=== PATIENT | male | born 1970 | race Caucasian/White ===

== ENCOUNTER 2020-10-25 12:46 | Inpatient (IN) | payer SELFPAY ==
[2020-10-25 13:28] LABS: Hemoglobin 15.5 g/dL (14.0-18.0); Mean Corpuscular HGB CONC 32.6 g/dL (32.0-36.0); Mean Corpuscular Hemoglobin 27.4 pg (27.0-31.0); Mean Corpuscular Volume 84.3 fL (78.0-98.0); Mean Platelet Volume 8.6 fL (7.4-10.4); Platelet Count 306 thou/uL (130-400); RBC Distribution Width 14.3 % (11.5-14.5); Red Blood Cell (RBC) Count 5.65 mill/uL (4.70-6.10); White Blood Cell (WBC) Count 13.3 thou/uL (4.8-10.8)
[2020-10-25 13:51] LABS: Band 3 % (5-11); Eosinophils 1 % (0-10); Lymphocytes 31 % (21-51); MDiff Complete? YES; Monocytes 12 % (0-10); Neutrophil 47 % (42-75); Platelet Morphology Comment Appears Adequate; RBC Morphology Normal; Reactive Lymphocytes 3 % (0-10)
--- NOTE | 2020-10-25 15:08 | RAD ---
AP CHEST: 10/25/20 INDICATIONS: Chest pain. Shortness of breath. No comparison. The lungs appear clear. No infiltrate. No evidence of vascular congestion or edema. Mild cardiomegaly . IMPRESSION: Heart is mildly enlarged. The lung brewer appear clear. POS: AGW
[2020-10-25] MEDS ORDERED: Enoxaparin Sodium 100 MG/ML SYRINGE ONE (15:36)
[2020-10-25 15:49] LABS: ALT (SGPT) 82 U/L (8-55); AST (SGOT) 67 U/L (5-34); Albumin 3.6 g/dL (3.5-5.0); Alkaline Phosphatase 77 U/L (40-110); Anion Gap 14 mmol/L (10-20); BUN (Urea Nitrogen) 24 mg/dL (8.9-20.6); Bilirubin, Total 0.4 mg/dL (0.2-1.2); Calc. Creatinine Clearance 0 mL/min (70-130); Calcium 8.9 mg/dL (7.8-10.44); Carbon Dioxide 25 mmol/L (22-29); Chloride 103 mmol/L (98-107); Globulin 3.5 g/dL (2.4-3.5); Lipase 72 U/L (8-78); Potassium 4.4 mmol/L (3.5-5.1); Protein, Total 7.1 g/dL (6.0-8.3); Sodium 138 mmol/L (136-145)
[2020-10-25 15:54] LABS: Glucose 53 mg/dL (70-105)
--- NOTE | 2020-10-25 16:54 | PDOC.HHP ---
Hospitalist ANCELMO "They say am having a mild heart attack" History of Present Illness: This patient is a 49-year-old whose medical history includes hypertension and dyslipidemia who was previously on antihypertensives but has not taken any for so long due to financial reasons. He presented to the hospital because he started having shortness of breath in the last 48 hours. He reports that he is only now able to walk about 10 feet before he has to stop due to shortness of breath. This got worse prompting him to seek medical attention today. Reportedly before coming into the hospital he was very hypertensive with a blood pressure around 180 systolic. He took a friend's blood pressure medication with slight improvement. With his shortness of breath he thinks he may have gained about 15 to 20 pounds. He usually weighs around 215 but today his weight was about 235. He is unable to lay flat at night to sleep due to him feeling shortness of breath. He has woken up in the middle of the night at times because he was short of breath but he also think that could be from anxiety. He has not had any chest pain that he was aware of. He had vomiting when he arrived in the emergency room. He has not had any palpitations. He denied any headaches. No diarrhea has been reported. Other pertinent medical history includes a father who from complications of coronary artery disease in his 60s and the mother who from complications of stroke and diabetes. His brother from complications of lupus. Allergies/Adverse Reactions: Allergy/AdvReac Type Severity Reaction Status Date / Time No Known Allergies Allergy Unverified 10/25/20 16:55 Past History: PMHx: Hypertension and hyperlipidemia. PSHx: He denied any previous surgical history. FHx: Significant for father who from complications of coronary artery disease in his 60s. His mother also possibly from complications of a stroke and his brother from complications of lupus. Social: He denied any alcohol or drug abuse. He denied any tobacco smoking. He works in construction. Hospitalist ANCELMO [place]OK[place] Constitutional: reports: sweats, weakness, malaise Respiratory: reports: cough, dry, shortness of breath, hemoptysis, SOB with excertion Cardiovascular: denies: chest pain, palpitations, orthopnea, paroxysmal noc. dyspnea, edema, light headedness, other Gastrointestinal: reports: nausea, vomiting. denies: abdominal pain, diarrhea, constipation, melena, hematochezia, other Genitourinary: denies: dysuria, frequency, incontinence, hematuria, retention, other Musculoskeletal: denies: neck pain, shoulder pain, arm pain, back pain, hand pain, leg pain, foot pain, other Skin: denies: rash, lesions, dylan, bruising, other Neurological: reports: weakness All other systems reviewed; all pertinent +/- noted in HPI/Subj Hospitalist Exam General Appearance: NAD, awake alert, ill appearing Eye: PERRL, anicteric sclera ENT: normocephalic atraumatic, no oropharyngeal lesions, dry oral mucosa Neck: supple, symmetric, JVD Heart: RRR, no murmur, no gallops, no rubs, normal peripheral pulses Respiratory: CTAB, no wheezes, no rales, no ronchi, normal chest expansion Gastrointestinal: soft, non-tender, non-distended, normal bowel sounds Extremities: 1+ LE edema Neurological: cranial nerve grossly intact, normal sensation to touch, no weakness, no focal deficits Musculoskeletal: normal tone, normal strength, no muscle wasting Psychiatric: normal affect, normal behavior, A&O x 3 Hospitalist Results Result Diagrams: 10/25/20 13:16 10/25/20 15:07 Lab results: Laboratory Last Values WBC 13.3 thou/uL (4.8-10.8) H 10/25/20 13:16 RBC 5.65 mill/uL (4.70-6.10) 10/25/20 13:16 Hgb 15.5 g/dL (14.0-18.0) 10/25/20 13:16 Hct 47.7 % (42.0-52.0) 10/25/20 13:16 MCV 84.3 fL (78.0-98.0) 10/25/20 13:16 MCH 27.4 pg (27.0-31.0) 10/25/20 13:16 MCHC 32.6 g/dL (32.0-36.0) 10/25/20 13:16 RDW 14.3 % (11.5-14.5) 10/25/20 13:16 Plt Count 306 thou/uL (130-400) 10/25/20 13:16 MPV 8.6 fL (7.4-10.4) 10/25/20 13:16 Neutrophils % (Manual) 47 % (42-75) 10/25/20 13:16 Band Neuts % (Manual) 3 % (5-11) L 10/25/20 13:16 Lymphocytes % (Manual) 31 % (21-51) 10/25/20 13:16 Reactive Lymphs % 3 % (0-10) 10/25/20 13:16 Monocytes % (Manual) 12 % (0-10) H 10/25/20 13:16 Eosinophils % (Manual) 1 % (0-10) 10/25/20 13:16 Basophils % (Manual) 3 % (0-2) H 10/25/20 13:16 Lymphocytes # Not Reportable 10/25/20 13:16 Plt Morphology Comment Appears Adequate 10/25/20 13:16 RBC Morph Comment Normal 10/25/20 13:16 Sodium 138 mmol/L (136-145) 10/25/20 15:07 Potassium 4.4 mmol/L (3.5-5.1) 10/25/20 15:07 Chloride 103 mmol/L (98-107) 10/25/20 15:07 Carbon Dioxide 25 mmol/L (22-29) 10/25/20 15:07 Anion Gap 14 mmol/L (10-20) 10/25/20 15:07 BUN 24 mg/dL (8.9-20.6) H 10/25/20 15:07 Creatinine 1.50 mg/dL (0.7-1.3) H 10/25/20 15:07 Estimated GFR (MDRD) 50 10/25/20 15:07 Glucose 53 mg/dL (70-105) L* 10/25/20 15:07 Calcium 8.9 mg/dL (7.8-10.44) 10/25/20 15:07 Total Bilirubin 0.4 mg/dL (0.2-1.2) 10/25/20 15:07 AST 67 U/L (5-34) H 10/25/20 15:07 ALT 82 U/L (8-55) H 10/25/20 15:07 Alkaline Phosphatase 77 U/L (40-110) 10/25/20 15:07 CK-MB (CK-2) 5.0 ng/mL (0-6.6) 10/25/20 13:16 Troponin I 0.110 ng/mL (< 0.028) H 10/25/20 13:16 B-Natriuretic Peptide 601.2 pg/mL (0-100) H 10/25/20 13:16 Serum Total Protein 7.1 g/dL (6.0-8.3) 10/25/20 15:07 Albumin 3.6 g/dL (3.5-5.0) 10/25/20 15:07 Globulin 3.5 g/dL (2.4-3.5) 10/25/20 15:07 Albumin/Globulin Ratio 1.0 g/dL (1.2-2.2) L 10/25/20 15:07 Lipase 72 U/L (8-78) 10/25/20 15:07 Hospitalist H&P A/P (1) Hypertensive heart disease with congestive heart failure Code(s): I11.0 - HYPERTENSIVE HEART DISEASE WITH HEART FAILURE Status: Acute Qualifiers: Heart failure type: diastolic Heart failure chronicity: acute Qualified Code(s): I11.0 - Hypertensive heart disease with heart failure; I50.31 - Acute diastolic (congestive) heart failure (2) Congestive heart failure due to cardiomyopathy Code(s): I50.9 - HEART FAILURE, UNSPECIFIED; I42.9 - CARDIOMYOPATHY, UNSPECIFIED Status: Acute (3) Acute kidney injury Code(s): N17.9 - ACUTE KIDNEY FAILURE, UNSPECIFIED Status: Acute (4) Dyslipidemia Code(s): E78.5 - HYPERLIPIDEMIA, UNSPECIFIED Status: Acute (5) Elevated troponin Code(s): R77.8 - OTHER SPECIFIED ABNORMALITIES OF PLASMA PROTEINS Status: Acute (6) Anxiety Code(s): F41.9 - ANXIETY DISORDER, UNSPECIFIED Status: Acute Plan: #1. Hypertensive heart disease. His blood pressure was significantly elevated prior to admission. We will work on optimizing it. 2. Acute congestive heart failure likely diastolic dysfunction. Patient likely has dyspnea secondary to congestive heart failure. Suspected acute on chronic. He reported that he took Lasix in the past but he has not been on it for over a year. On exam he does have pretty significant jugular venous distention. We will diurese him. We will get an echocardiogram to further delineate the heart fail ure type. Consider cardiology consultation in the near future. 3. Acute kidney injury. Patient's creatinine was 1.5. No prior here to document baseline. We will avoid nephrotoxins. I would like to not give him any lisinopril at this time until we figure out what his baseline is. 4. Hyperlipidemia We will check lipid profile in the morning. 5. Elevated troponin. Patient's troponin was slightly elevated but he is not having any chest pain. I suspect that this might be type II NSTEMI secondary to uncontrolled blood pressure. The patient is a full code at his request.
[2020-10-25] MEDS ORDERED: Furosemide 100 MG/10 ML VIAL SLOW IVP SCH (17:15)
[2020-10-25] MEDS ORDERED: Furosemide 40 MG/4 ML VIAL ONE (17:29)
[2020-10-25 18:10] LABS: Troponin I 0.101 ng/mL (< 0.028)
[2020-10-25] MEDS ORDERED: hydrOXYzine 25 MG TAB ONE (21:46)
[2020-10-26 04:34] LABS: #Basophils 0.1 thou/uL (0.0-0.2); #Eosinphils 0.2 thou/uL (0.0-0.7); #Lymphocytes 3.4 thou/uL (1.20-3.40); #Monocytes 0.8 thou/uL (0.11-0.59); #Neutrophils 8.7 thou/uL (1.40-6.50); %Eosinophils 1.3 % (0.0-10.0); %Monocytes 5.8 % (0.0-10.0); %Neutrophils 65.9 % (42.0-75.0); Hemoglobin 13.5 g/dL (14.0-18.0); Mean Corpuscular HGB CONC 31.2 g/dL (32.0-36.0); Mean Corpuscular Hemoglobin 25.4 pg (27.0-31.0); Mean Corpuscular Volume 81.5 fL (78.0-98.0); Mean Platelet Volume 8.4 fL (7.4-10.4); Platelet Count 304 thou/uL (130-400); RBC Distribution Width 14.1 % (11.5-14.5); Red Blood Cell (RBC) Count 5.33 mill/uL (4.70-6.10); White Blood Cell (WBC) Count 13.2 thou/uL (4.8-10.8)
[2020-10-26 04:41] LABS: Hemoglobin A1c 5.2 % (4.0-6.0)
[2020-10-26 04:53] LABS: ALT (SGPT) 84 U/L (8-55); AST (SGOT) 71 U/L (5-34); Albumin 3.1 g/dL (3.5-5.0); Alkaline Phosphatase 63 U/L (40-110); Anion Gap 13 mmol/L (10-20); BUN (Urea Nitrogen) 20 mg/dL (8.9-20.6); Bilirubin, Total 0.4 mg/dL (0.2-1.2); Calc. Creatinine Clearance 99 mL/min (70-130); Calcium 8.5 mg/dL (7.8-10.44); Carbon Dioxide 25 mmol/L (22-29); Cardiac Risk 5.4 (Less than 4.5); Chloride 100 mmol/L (98-107); Cholesterol 108 mg/dl (< 200 Desired); Glucose 149 mg/dL (70-105); HDL Cholesterol 20 mg/dL (>60 Neg Risk); LDL Cholesterol, Calculated 67 mg/dL; Magnesium 1.7 mg/dL (1.6-2.6); Potassium 3.6 mmol/L (3.5-5.1); Protein, Total 6.1 g/dL (6.0-8.3); Sodium 134 mmol/L (136-145); Triglycerides 103 mg/dL (Less than 150)
[2020-10-26] MEDS ORDERED: Furosemide 40 MG/4 ML VIAL ONE (06:29)
[2020-10-26] MEDS: Furosemide 40 MG/4 ML VIAL SLOW IVP SCH ×2 (06:32→14:20)
[2020-10-26 08:05] LABS: SARS-CoV-2 PCR by NAA DETECTED (NotDetected)
[2020-10-26] MEDS ORDERED: Enoxaparin Sodium 40 MG/0.4 ML SYRINGE ONE (09:04)
[2020-10-26] MEDS: Enoxaparin Sodium 40 MG/0.4 ML SYRINGE SC SCH (09:14)
[2020-10-26] MEDS ORDERED: cefTRIAXone\\ROCEPHIN 1 GM in Sodium Chloride 0.9% 100 ML IVPB SCH (10:00)
--- NOTE | 2020-10-26 15:18 | PDOC.HOSPP ---
- Subjective Encounter Date: 10/26/20 Encounter Time: 15:16 Subjective: This patient is a 49-year-old who was admitted yesterday with a complaint of generalized weakness and worsening shortness of breath. He was found to have acute congestive heart failure exacerbation. He is getting diuresed. It appears that he also had a positive screen for COVID-19 pneumonia. Reportedly in August he was diagnosed with Covid as well. He tells me that his breathing has improved some. He was not on oxygen when I visited. He will continue to be diuresed. - Objective Vital Signs & Weight: Vital Signs (12 hours) Temp Pulse Resp BP BP Pulse Ox 10/26/20 13:21 98.5 F 80 22 H 122/74 99 10/26/20 12:00 99 10/26/20 10:00 98.3 F 77 20 135/91 H 100 10/26/20 07:27 98 F 74 20 119/80 94 L 10/26/20 04:00 98.5 F 78 18 127/82 97 Weight Weight 231 lb 7.766 oz I&O: 10/25/20 10/26/20 10/27/20 06:59 06:59 06:59 Intake Total 360 Output Total 1450 Balance -1090 Result Diagrams: 10/26/20 04:09 10/26/20 04:09 Additional Labs: Accuchecks 10/25/20 17:19 POC Glucose 117 H Radiology Reviewed by me: Yes EKG Reviewed by me: Yes Hospitalist ROS - Review of Systems Constitutional: reports: weakness, malaise Respiratory: reports: shortness of breath, SOB with excertion Gastrointestinal: reports: nausea Neurological: reports: weakness - Medication Medications: Active Medications Generic Name Dose Route Start Last Admin Trade Name Freq PRN Reason Stop Dose Admin Enoxaparin Sodium 40 mg 10/26/20 09:00 10/26/20 09:14 Enoxaparin Sodium 40 Mg/0.4 Ml Syringe SC 40 mg 0900 THEA Administration Furosemide 40 mg 10/26/20 06:00 10/26/20 14:20 Furosemide 40 Mg/4 Ml Vial SLOW IVP 40 mg 0600,1400 THEA Administration Metoprolol Succinate 12.5 mg 10/26/20 09:00 10/26/20 09:14 Metoprolol Succinate Xl 25 Mg Tab PO 12.5 mg DAILY THEA Administration Hospitalist Exam Vitals: Vital Signs (12 hours) Temp Pulse Resp BP BP Pulse Ox 10/26/20 13:21 98.5 F 80 22 H 122/74 99 10/26/20 12:00 99 10/26/20 10:00 98.3 F 77 20 135/91 H 100 10/26/20 07:27 98 F 74 20 119/80 94 L 10/26/20 04:00 98.5 F 78 18 127/82 97 Weight Weight 231 lb 7.766 oz General Appearance: NAD, awake alert Eye: PERRL, anicteric sclera ENT: normocephalic atraumatic, no oropharyngeal lesions Neck: supple, symmetric, JVD Heart: RRR, no murmur, no gallops, no rubs, normal peripheral pulses Respiratory: CTAB, no wheezes, no rales Gastrointestinal: soft, non-tender, non-distended, normal bowel sounds Neurological: cranial nerve grossly intact Psychiatric: normal affect, normal behavior, A&O x 3 Hosp A/P (1) Hypertensive heart disease with congestive heart failure Code(s): I11.0 - HYPERTENSIVE HEART DISEASE WITH HEART FAILURE Status: Acute Qualifiers: Heart failure type: diastolic Heart failure chronicity: acute Qualified Code(s): I11.0 - Hypertensive heart disease with heart failure; I50.31 - Acute diastolic (congestive) heart failure (2) Congestive heart failure due to cardiomyopathy Code(s): I50.9 - HEART FAILURE, UNSPECIFIED; I42.9 - CARDIOMYOPATHY, UNSPECIFIED Status: Acute (3) Acute kidney injury Code(s): N17.9 - ACUTE KIDNEY FAILURE, UNSPECIFIED Status: Acute (4) Dyslipidemia Code(s): E78.5 - HYPERLIPIDEMIA, UNSPECIFIED Status: Acute (5) Elevated troponin Code(s): R77.8 - OTHER SPECIFIED ABNORMALITIES OF PLASMA PROTEINS Status: Acute (6) Anxiety Code(s): F41.9 - ANXIETY DISORDER, UNSPECIFIED Status: Acute - Plan old records reviewed/req, PT/OT, respiratory therapy, incentive spirometry, out of bed/ambulate #1. Acute CHF exacerbation likely diastolic dysfunction. The patient is getting diuresed and he seems to be improving. We will continue guideline directed medical therapy. Follow-up on echocardiogram report. 2. Hypertensive heart and chronic kidney disease with congestive heart failure exacerbation. His blood pressure appears to be better controlled now. 3. Acute kidney injury superimposed on chronic kidney disease. The patient's creatinine was elevated on admission. I suspect he has CKD complicated by VENU. 4. COVID-19 pneumonia. He reportedly was diagnosed with COVID-19 pneumonia in August 2020. He seems to be asymptomatic from the Covid standpoint. However I will start him on some steroids, zinc sulfate and vitamin C. Obviously he is not a candidate for any remdesivir. 5. Dyslipidemia. Follow-up on lipid profile. 6. Elevated troponin. Suspect secondary to uncontrolled blood pressure.
[2020-10-27] MEDS: Furosemide 40 MG/4 ML VIAL SLOW IVP SCH ×2 (05:44→13:56)
[2020-10-27 05:47] LABS: #Basophils 0.1 thou/uL (0.0-0.2); #Eosinphils 0.2 thou/uL (0.0-0.7); #Lymphocytes 2.3 thou/uL (1.20-3.40); #Monocytes 1.1 thou/uL (0.11-0.59); #Neutrophils 7.2 thou/uL (1.40-6.50); %Basophils 0.7 % (0.0-1.0); %Lymphocytes 20.7 % (21.0-51.0); %Monocytes 10.5 % (0.0-10.0); %Neutrophils 66.1 % (42.0-75.0); Hemoglobin 15.9 g/dL (14.0-18.0); Mean Corpuscular HGB CONC 32.6 g/dL (32.0-36.0); Mean Corpuscular Hemoglobin 26.3 pg (27.0-31.0); Mean Corpuscular Volume 80.8 fL (78.0-98.0); Mean Platelet Volume 8.3 fL (7.4-10.4); Platelet Count 287 thou/uL (130-400); RBC Distribution Width 13.8 % (11.5-14.5); Red Blood Cell (RBC) Count 6.02 mill/uL (4.70-6.10); White Blood Cell (WBC) Count 10.9 thou/uL (4.8-10.8)
[2020-10-27 06:10] LABS: Anion Gap 15 mmol/L (10-20); BUN (Urea Nitrogen) 19 mg/dL (8.9-20.6); Calc. Creatinine Clearance 94 mL/min (70-130); Calcium 8.8 mg/dL (7.8-10.44); Carbon Dioxide 26 mmol/L (22-29); Chloride 97 mmol/L (98-107); Glucose 90 mg/dL (70-105); Magnesium 1.7 mg/dL (1.6-2.6); Potassium 3.4 mmol/L (3.5-5.1); Sodium 135 mmol/L (136-145)
[2020-10-27] MEDS: Enoxaparin Sodium 40 MG/0.4 ML SYRINGE SC SCH (07:50)
[2020-10-27] MEDS: Ascorbic Acid 500 mg Chewable Tablet PO SCH (07:50)
[2020-10-27] MEDS: Dexamethasone 4 MG TAB PO SCH (07:50)
[2020-10-27] MEDS: Zinc Sulfate 220 MG CAP PO SCH (07:51)
[2020-10-27 09:28] VITALS: BMI 28.4
--- NOTE | 2020-10-27 12:32 | PDOC.HOSPP ---
- Subjective Encounter Date: 10/27/20 Encounter Time: 09:10 Subjective: Patient doing well. He is complaining that he has some tingling numbness in his extremities but that is ongoing over a year. It appears patient is not on any home medications for neuropathy. It also appears that she is not any home home medications at all. His blood glucose is in the normal range and A1c 5.2. BNP 1795 yesterday. TSH in the normal range Covid positive. - Objective Vital Signs & Weight: Vital Signs (12 hours) Temp Pulse Resp BP BP Pulse Ox 10/27/20 08:02 98.7 F 82 20 133/92 H 94 L 10/27/20 04:32 98.2 F 70 16 138/89 93 L Weight Admit Weight 231 lb 7.76 oz Weight 204 lb I&O: 10/26/20 10/27/20 10/28/20 06:59 06:59 06:59 Intake Total 980 Output Total 2785 Balance -1805 Result Diagrams: 10/27/20 05:30 10/27/20 05:30 Hospitalist ROS - Medication Medications: Active Medications Generic Name Dose Route Start Last Admin Trade Name Freq PRN Reason Stop Dose Admin Ascorbic Acid 1,000 mg 10/27/20 09:00 10/27/20 07:50 Ascorbic Acid 500 Mg Chewable Tablet PO 1,000 mg DAILY THEA Administration Dexamethasone 4 mg 10/27/20 08:00 10/27/20 07:50 Dexamethasone 4 Mg Tab PO 4 mg QAM-WM THEA Administration Enoxaparin Sodium 40 mg 10/26/20 09:00 10/27/20 07:50 Enoxaparin Sodium 40 Mg/0.4 Ml Syringe SC 40 mg 0900 THEA Administration Furosemide 40 mg 10/26/20 06:00 10/27/20 05:44 Furosemide 40 Mg/4 Ml Vial SLOW IVP 40 mg 0600,1400 THEA Administration Metoprolol Succinate 12.5 mg 10/26/20 09:00 10/27/20 07:51 Metoprolol Succinate Xl 25 Mg Tab PO 12.5 mg DAILY THEA Administration Zinc Sulfate 220 mg 10/27/20 09:00 10/27/20 07:51 Zinc Sulfate 220 Mg Cap PO 220 mg DAILY THEA Administration Hospitalist Exam Vitals: Vital Signs (12 hours) Temp Pulse Resp BP BP Pulse Ox 10/27/20 08:02 98.7 F 82 20 133/92 H 94 L 10/27/20 04:32 98.2 F 70 16 138/89 93 L Weight Admit Weight 231 lb 7.76 oz Weight 204 lb General Appearance: NAD, awake alert Eye: PERRL ENT: normocephalic atraumatic Neck: supple Heart: RRR, normal peripheral pulses Respiratory: CTAB, normal chest expansion Gastrointestinal: soft, normal bowel sounds Neurological: no focal deficits, no new deficit Psychiatric: normal affect, normal behavior, A&O x 3 Hosp A/P - Plan Hypertensive heart disease with congestive heart failure Code(s): I11.0 - HYPERTENSIVE HEART DISEASE WITH HEART FAILURE Status: Acute Qualifiers: Heart failure type: diastolic Heart failure chronicity: acute Qualified Code(s): I11.0 - Hypertensive heart disease with heart failure; I50.31 - Acute diastolic (congestive) heart failure (2) Congestive heart failure due to cardiomyopathy Code(s): I50.9 - HEART FAILURE, UNSPECIFIED; I42.9 - CARDIOMYOPATHY, UNSPECIFIED Status: Acute (3) Acute kidney injury Code(s): N17.9 - ACUTE KIDNEY FAILURE, UNSPECIFIED Status: Acute (4) Dyslipidemia Code(s): E78.5 - HYPERLIPIDEMIA, UNSPECIFIED Status: Acute (5) Elevated troponin Code(s): R77.8 - OTHER SPECIFIED ABNORMALITIES OF PLASMA PROTEINS Status: Acute (6) Anxiety Code(s): F41.9 - ANXIETY DISORDER, UNSPECIFIED Status: Acute - Plan old records reviewed/req, PT/OT, respiratory therapy, incentive spirometry, out of bed/ambulate #1. Acute CHF exacerbation likely diastolic dysfunction. Follow-up on echocardiogram report.----> pending IV diuresis twice a day 2. Hypertensive heart and chronic kidney disease with congestive heart failure exacerbation. [place] 3. Acute kidney injury superimposed on chronic kidney disease. Improved 4. COVID-19 pneumonia. He reportedly was diagnosed with COVID-19 pneumonia in August 2020. He seems to be asymptomatic from the Covid standpoint. - steroids, zinc sulfate and vitamin C. not a candidate for any remdesivir. 5. Dyslipidemia. Follow-up on lipid profile. 6. Elevated troponin. Suspect secondary to uncontrolled blood pressure. He is complaining that he has some tingling numbness in his extremities but that is ongoing over a year. It appears patient is not on any home medications for neuropathy. It also appears that he is not any home home medications at all. His blood glucose is in the normal range and A1c 5.2. BNP 1795 yesterday. TSH in the normal range Covid positive. Nondiabetic neuropathy, chronic -Will start low-dose amitriptyline and titrate upwards if symptoms not resolved then he needs a proper EMG study as an outpatient through primary care physician.
[2020-10-27] MEDS ORDERED: Amitriptyline HCl 25 MG TAB PO SCH (12:45)
--- NOTE | 2020-10-27 14:27 | EKG ---
Test Reason : Blood Pressure : / mmHG Vent. Rate : 069 BPM Atrial Rate : 069 BPM P-R Int : 198 ms QRS Dur : 098 ms QT Int : 442 ms P-R-T Axes : 061 -03 022 degrees QTc Int : 473 ms Normal sinus rhythm Left atrial enlargement Incomplete right bundle branch block Borderline ECG Confirmed by YAMILE LIZARRAGA DO ([id number]), news assignment editor SHREE JOSEPH ([id number]) on 10/27/2020 2:27:15 PM Referred By: Confirmed By:YAMILE LIZRARAGA DO
[2020-10-27] MEDS ORDERED: FLU VACC QS2020-21(6MOS UP)/PF 60 MCG/0.5 ML SYRINGE IM ONE (18:00)
[2020-10-28 05:33] LABS: Anion Gap 15 mmol/L (10-20); BUN (Urea Nitrogen) 22 mg/dL (8.9-20.6); Calc. Creatinine Clearance 106 mL/min (70-130); Calcium 9.3 mg/dL (7.8-10.44); Carbon Dioxide 26 mmol/L (22-29); Chloride 96 mmol/L (98-107); Glucose 118 mg/dL (70-105); Sodium 133 mmol/L (136-145)
[2020-10-28] MEDS: Furosemide 40 MG/4 ML VIAL SLOW IVP SCH (06:25)
[2020-10-28] MEDS ORDERED: Amitriptyline HCl 25 MG TAB PO SCH (09:00)
[2020-10-28] MEDS: Ascorbic Acid 500 mg Chewable Tablet PO SCH (09:40)
[2020-10-28] MEDS: Enoxaparin Sodium 40 MG/0.4 ML SYRINGE SC SCH (09:41)
[2020-10-28] MEDS: Dexamethasone 4 MG TAB PO SCH (09:41)
[2020-10-28] MEDS: Zinc Sulfate 220 MG CAP PO SCH (09:41)
--- NOTE | 2020-10-28 11:56 | PDOC.DS.DS ---
Provider Date of Admission: 10/25/20 16:35 Admitting Provider: Rito Lantigua MD Course Hospital Course: 49-year-old male presented with Hypertensive heart disease with congestive heart failure Code(s): I11.0 - HYPERTENSIVE HEART DISEASE WITH HEART FAILURE Status: Acute Qualifiers: Heart failure type: diastolic Heart failure chronicity: acute Qualified Code(s): I11.0 - Hypertensive heart disease with heart failure; I50.31 - Acute diastolic (congestive) heart failure (2) Congestive heart failure due to cardiomyopathy Code(s): I50.9 - HEART FAILURE, UNSPECIFIED; I42.9 - CARDIOMYOPATHY, UNSPECIFIED Status: Acute (3) Acute kidney injury Code(s): N17.9 - ACUTE KIDNEY FAILURE, UNSPECIFIED Status: Acute (4) Dyslipidemia Code(s): E78.5 - HYPERLIPIDEMIA, UNSPECIFIED Status: Acute (5) Elevated troponin Code(s): R77.8 - OTHER SPECIFIED ABNORMALITIES OF PLASMA PROTEINS Status: Acute (6) Anxiety Code(s): F41.9 - ANXIETY DISORDER, UNSPECIFIED Status: Acute #1. Acute CHF exacerbation likely diastolic dysfunction. Echo not done probably due to Covid nature. 2. Hypertensive heart and chronic kidney disease with congestive heart failure exacerbation. Started on Toprol-XL 12.5 mg daily and his pulse and blood pressure seems to be tolerating. 3. Acute kidney injury superimposed on chronic kidney disease. Improved 4. COVID-19 pneumonia. He reportedly was diagnosed with COVID-19 pneumonia in August 2020. He seems to be asymptomatic from the Covid standpoint. Does not require home oxygen 5. Dyslipidemia. Follow-up on lipid profile.--LDL level less than 70 and he does not require statin at present. 6. Elevated troponin. Suspect secondary to uncontrolled blood pressure. He is complaining that he has some tingling numbness in his extremities but that is ongoing over a year. It appears patient is not on any home medications for neuropathy. It also appears that he is not any home home medications at all. His blood glucose is in the normal range and A1c 5.2. BNP 1795 yesterday. TSH in the normal range Covid positive. Nondiabetic neuropathy, chronic -started low-dose amitriptyline and titrate upwards if symptoms not resolved then he needs a proper EMG study as an outpatient through primary care physician. Regarding new onset heart failure, which could be due to recent Covid pneumonia, will follow up with the sociology adjunct instructor as an outpatient. He lost about 3 pounds with the diuresis. I talked to Dr. Duong, he is quite asymptomatic and quite anxious to go home, will arrange for outpatient clinic appointment. Until then Dr. Duong recommended less salt diet fluid restrictions and no Lasix until evaluated by him. Clinically sound enough to be discharged home today. Discharge time over 30 minutes. Lab Results: 10/27/20 05:30 10/28/20 04:50 Abnormal Lab Results - Last 48 hrs 10/27/20 05:30: Sodium 135 L, Potassium 3.4 L, Chloride 97 L 10/27/20 05:30: C-Reactive Protein 1.41 H 10/27/20 05:30: WBC 10.9 H, MCH 26.3 L, Lymphocytes % 20.7 L, Monocytes % 10.5 H, Neutrophils # 7.2 H, Monocytes # 1.1 H 10/27/20 05:30: ESR Westergren 42 H 10/28/20 04:50: Sodium 133 L, Chloride 96 L, BUN 22 H Microbiology - Entire Visit 10/26/20 10:35 Venous blood - Right Hand Blood Culture - Preliminary Specimen has been received and culture in progress. No Growth to date. 10/26/20 10:35 Venous blood - Left Hand Blood Culture - Preliminary Specimen has been received and culture in progress. No Growth to date. Vitals: Vital Signs (12 hours) Temp Pulse Resp BP Pulse Ox 10/28/20 08:40 98.0 F 71 24 H 116/78 94 L 10/28/20 05:45 98 F 67 20 128/76 98 10/28/20 04:23 95 Weight Admit Weight 231 lb 7.76 oz Weight 201 lb 1.6 oz Physical Exam: The patient was seen and examined on the day of discharge. Patient is sitting in his quite anxious to go home. He feels better hand she would prefer to go home today. Echo is not done due to Covid nature. He is asymptomatic his sats 94% in the room at General Appearance: NAD, awake alert Eye: PERRL, anicteric sclera Neck: supple Respiratory: CTAB, normal chest expansion Cardiovascular: RRR Gastrointestinal: soft, normal bowel sounds Neurological: no focal deficits Plan Prescriptions: Amitriptyline HCl [Elavil] 25 mg PO DAILY 30 Days #30 tab Home Medications: Medication Instructions Recorded Confirmed Type Amitriptyline HCl [Elavil] 25 mg PO DAILY 30 Days #30 tab 10/28/20 Rx Metoprolol Succinate [Toprol XL] 12.5 mg PO DAILY 30 Days #30 tab 10/28/20 Rx Allergies: No Known Allergies Allergy (Verified 10/25/20 17:45) Discharge Instructions:: Follow with the PCP in 1 week Follow with sociology adjunct instructor Dr. Duong His clinic will call you in 2 weeks if not you can his clinic do not take too much salty food and keep the water intake to 1.5 L a day No Lasix[water pill] until seen by sociology adjunct instructor Activity:: Activity as Tolerated Nourishment:: Heart Healthy Diet, Low Sodium Diet Additional Dietary Instructions:: do not to take too much salty food and keep the water intake to 1.5 L a day. No Lasix[water pill] until seen by sociology adjunct instructor Disposition: HOME Quality CORE MEASURES:: N/A
[2020-10-28 12:30] VITALS: BP 134/78; TEMP 97.7
== END 2020-10-28 14:30 | disposition home or self-care (01) | DRG 291 ==
LOC: ERS 12:46 → ERHOLD 16:35 → 2SW 10-26 10:09
PROVIDERS: ADMIT Hospitalist; ATTEND Internal Medicine
DX: I13.0 Hypertensive heart and chronic kidney disease with heart failure and stage 1 through stage 4 chronic kidney disease, or unspecified chronic kidney disease (principal); U07.1 COVID-19; I50.31 Acute diastolic (congestive) heart failure; J12.82 Pneumonia due to coronavirus disease 2019; N17.9 Acute kidney failure, unspecified; I42.9 Cardiomyopathy, unspecified; F32.9 Major depressive disorder, single episode, unspecified; F41.9 Anxiety disorder, unspecified; E78.5 Hyperlipidemia, unspecified; Z82.49 Family history of ischemic heart disease and other diseases of the circulatory system; Z83.3 Family history of diabetes mellitus; R77.8 Other specified abnormalities of plasma proteins; G62.9 Polyneuropathy, unspecified
CPT/HCPCS: 36415; 36416; 71045; 80048; 80053; 80061; 82553; 83036; 83690; 83735; 83880; 84145; 84443; 84484; 85025; 85652; 86140; 87040; 87635; 93005; 96372; J0696; J1650; J1940; J3490; J8540; U0003; U0005

== ENCOUNTER 2021-11-29 19:55 | Emergency (ER) | payer SELFPAY ==
[2021-11-29] MEDS ORDERED: Ketorolac Tromethamine 30 MG/ML VIAL ONE (22:49)
== END 2021-11-29 22:58 | disposition home or self-care (01) ==
LOC: ERS 19:55
DX: S43.401A Unspecified sprain of right shoulder joint, initial encounter (principal); I10 Essential (primary) hypertension; F17.220 Nicotine dependence, chewing tobacco, uncomplicated; Z79.899 Other long term (current) drug therapy; W22.8XXA Striking against or struck by other objects, initial encounter
CPT/HCPCS: 96372; J1885

== ENCOUNTER 2022-02-08 04:48 | Inpatient (IN) | payer SELFPAY ==
[2022-02-08] MEDS ORDERED: Aspirin 325 MG TAB ONE (05:06)
[2022-02-08] MEDS ORDERED: Nitroglycerin 0.4 MG TAB 1 EACH ONE ×2 (05:06→05:42)
[2022-02-08 05:18] LABS: #Basophils 0.1 thou/uL (0.0-0.2); #Eosinphils 0.2 thou/uL (0.0-0.7); #Lymphocytes 2.6 thou/uL (1.20-3.40); #Monocytes 0.8 thou/uL (0.11-0.59); #Neutrophils 5.4 thou/uL (1.40-6.50); %Eosinophils 2.1 % (0.0-10.0); %Lymphocytes 28.8 % (21.0-51.0); %Monocytes 8.7 % (0.0-10.0); %Neutrophils 59.4 % (42.0-75.0); Hemoglobin 13.8 g/dL (14.0-18.0); Mean Corpuscular HGB CONC 32.1 g/dL (32.0-36.0); Mean Corpuscular Hemoglobin 24.1 pg (27.0-31.0); Mean Corpuscular Volume 75.2 fL (78.0-98.0); Mean Platelet Volume 8.7 fL (7.4-10.4); Platelet Count 354 thou/uL (130-400); RBC Distribution Width 15.3 % (11.5-14.5); Red Blood Cell (RBC) Count 5.71 mill/uL (4.70-6.10); White Blood Cell (WBC) Count 9.1 thou/uL (4.8-10.8)
[2022-02-08 05:32] LABS: ALT (SGPT) 23 U/L (8-55); AST (SGOT) 29 U/L (5-34); Albumin 3.9 g/dL (3.5-5.0); Alkaline Phosphatase 81 U/L (40-110); Anion Gap 15 mmol/L (10-20); BUN (Urea Nitrogen) 23 mg/dL (8.9-20.6); Bilirubin, Total 0.6 mg/dL (0.2-1.2); Calc. Creatinine Clearance 0 mL/min (70-130); Carbon Dioxide 26 mmol/L (22-29); Chloride 101 mmol/L (98-107); Globulin 3.7 g/dL (2.4-3.5); Glucose 82 mg/dL (70-105); Potassium 3.8 mmol/L (3.5-5.1); Protein, Total 7.6 g/dL (6.0-8.3); Sodium 138 mmol/L (136-145)
[2022-02-08] MEDS ORDERED: Labetalol HCl 100 MG/20 ML VIAL ONE (05:44)
[2022-02-08 05:54] LABS: CKMB 5.6 ng/mL (0-6.6)
[2022-02-08] MEDS ORDERED: Furosemide 40 MG/4 ML VIAL ONE (06:06)
[2022-02-08] MEDS ORDERED: niCARdipine 25 MG in Sodium Chloride 0.9% 250 ML 250 ML IVPB SCH (06:15)
[2022-02-08 07:26] LABS: SARS-CoV-2 NAA Rapid Test Not Detected (NotDetected)
[2022-02-08] MEDS ORDERED: Ondansetron PF 4 MG/2 ML Vial IVP PRN (07:35)
[2022-02-08] MEDS ORDERED: Bisacodyl 5 MG TAB PO PRN (07:35)
[2022-02-08] MEDS ORDERED: Guaifenesin DM 100-10/5 ML UDCUP PO PRN (07:35)
[2022-02-08] MEDS ORDERED: Ondansetron ODT 4 MG TAB PO PRN (07:35)
[2022-02-08] MEDS ORDERED: Acetaminophen 650 MG Suppository PR PRN (07:35)
[2022-02-08] MEDS ORDERED: HYDROcodone/Acetaminophen 5/325 mg Tablet PO PRN (07:35)
[2022-02-08] MEDS ORDERED: Loperamide HCl 2 MG CAP PO PRN (07:35)
[2022-02-08] MEDS ORDERED: Senokot S 8.6-50 MG TAB PO PRN (07:35)
[2022-02-08] MEDS ORDERED: Benzonatate 100 MG CAP PO PRN (07:44)
[2022-02-08] MEDS ORDERED: Cepastat Lozenges 1 LOZ PO PRN (07:44)
[2022-02-08] MEDS ORDERED: Loratadine 10 MG TAB PO PRN (07:44)
[2022-02-08] MEDS ORDERED: Calcium Carbonate 500 MG ChewTAB PO PRN (07:44)
[2022-02-08] MEDS ORDERED: Aspirin 325 MG TAB PO SCH (07:45)
[2022-02-08] MEDS ORDERED: Nitroglycerin 2% Ointment 1 INCH/1 GM Packet TOP SCH (08:00)
[2022-02-08] MEDS ORDERED: Carvedilol 3.125 MG TAB PO SCH (08:00)
[2022-02-08 08:12] VITALS: BMI 30.2
[2022-02-08 08:16] LABS: Iron 30 ug/dL (65-175); Iron 32 ug/dL (65-175); Iron Binding Capacity, Total 475 mcg/dL (261-462); Iron Binding Capacity, Total 478 mcg/dL (261-462); Magnesium 1.9 mg/dL (1.6-2.6); Phosphorus 3.5 mg/dL (2.3-4.7)
[2022-02-08 08:21] LABS: Troponin I 0.044 ng/mL (< 0.028)
[2022-02-08 08:42] LABS: Bacteria/HPF None Seen HPF (None Seen); Bilirubin Negative (Negative); Blood, Urine Negative (Negative); Clarity Clear (Clear); Glucose, Urine (Dipstick) Normal (Negative); Ketone, Urine Negative (Negative); Leukocyte Negative Leu/uL (Negative); Nitrite Negative (Negative); Protein, Urine (Dipstick) Negative (Neg-Trace); RBC/HPF 0-3 HPF (0-3); Specific Gravity, Urine 1.006 (1.002-1.036); Squamous Epithelial 0-3 HPF (0-3); Urobilinogen Normal mg/dL (Less than 2); WBC/HPF None Seen HPF (0-3)
[2022-02-08 08:51] LABS: Amphetamine Not Detected (NotDetected); Barbiturates Screen Not Detected (NotDetected); Benzodiazepine Screen Not Detected (NotDetected); Cocaine Metabolite Screen Not Detected (NotDetected); Methadone Not Detected (NotDetected); Methamphetamine Detected (NotDetected); Opiate Screen Not Detected (NotDetected); Oxycodone Screen Not Detected (NotDetected); Phencyclidine (PCP) Not Detected (NotDetected); THC/Cannabinoid Screen Not Detected (NotDetected); Tricyclic Screen Not Detected (NotDetected)
[2022-02-08] MEDS: Enoxaparin Sodium 40 MG/0.4 ML SYRINGE SC SCH (09:22)
[2022-02-08] MEDS ORDERED: diphenhydrAMINE 25 MG CAP PO PRN (10:24)
[2022-02-08] MEDS ORDERED: Labetalol HCl 100 MG/20 ML VIAL SLOW IVP PRN (10:24)
[2022-02-08] MEDS ORDERED: Nitroglycerin 0.4 MG TAB (25 Tab Bottle) SL PRN (10:24)
[2022-02-08] MEDS ORDERED: hydrALAZINE 20 MG/ML VIAL SLOW IVP PRN (10:24)
[2022-02-08] MEDS ORDERED: Spironolactone 25 MG TAB PO SCH (10:30)
[2022-02-08] MEDS ORDERED: Losartan 25 MG TAB PO SCH (10:37)
[2022-02-08 11:28] LABS: Troponin I 0.038 ng/mL (< 0.028)
[2022-02-08] MEDS ORDERED: NIFEdipine XL 30 MG TAB PO SCH (13:30)
[2022-02-08] MEDS ORDERED: Potassium Chloride 20 MEQ TAB PO SCH (14:00)
[2022-02-08] MEDS: Carvedilol 3.125 MG TAB PO SCH (17:07)
[2022-02-08] MEDS: Acetaminophen 325 MG TAB PO PRN (20:39)
[2022-02-08] MEDS: Lisinopril 10 MG TAB PO SCH (20:40)
[2022-02-09 05:22] LABS: Actual Bicarbonate (HCO3v) 26 mEq/L (22-28); Base Excess 1.3 mEq/L (-2.0 to +3.0); Calcium, Ionized (venous) 1.13 mmol/L (1.16-1.32); Chloride (VBG) 102 mmol/L (98-106); Hemoglobin (Hb) 15.2 g/dL (13.1-17.2); Potassium (VBG) 3.75 mmol/L (3.70-5.30); Sodium 136.4 mmol/L (133-146); pH (venous) 7.43 (7.32-7.43)
[2022-02-09 05:33] LABS: ALT (SGPT) 20 U/L (8-55); AST (SGOT) 22 U/L (5-34); Albumin 3.4 g/dL (3.5-5.0); Alkaline Phosphatase 73 U/L (40-110); Anion Gap 11 mmol/L (10-20); BUN (Urea Nitrogen) 17 mg/dL (8.9-20.6); Bilirubin, Total 0.6 mg/dL (0.2-1.2); Calc. Creatinine Clearance 107 mL/min (70-130); Calcium 8.8 mg/dL (7.8-10.44); Carbon Dioxide 26 mmol/L (22-29); Cardiac Risk 5.9 (Less than 4.5); Chloride 103 mmol/L (98-107); Cholesterol 129 mg/dl (< 200 Desired); Globulin 3.6 g/dL (2.4-3.5); Glucose 93 mg/dL (70-105); HDL Cholesterol 22 mg/dL (>60 Neg Risk); LDL Cholesterol, Calculated 87 mg/dL; Potassium 3.7 mmol/L (3.5-5.1); Sodium 136 mmol/L (136-145); Triglycerides 101 mg/dL (Less than 150)
[2022-02-09] MEDS ORDERED: Spironolactone 25 MG TAB PO SCH (08:00)
[2022-02-09] MEDS ORDERED: NIFEdipine XL 30 MG TAB PO SCH (09:00)
[2022-02-09] MEDS: Enoxaparin Sodium 40 MG/0.4 ML SYRINGE SC SCH (09:08)
[2022-02-09] MEDS: Aspirin Chewable 81 MG TAB PO SCH (09:09)
[2022-02-09] MEDS: Ferrous Sulfate 325 MG TAB PO SCH (09:09)
[2022-02-09] MEDS: Carvedilol 3.125 MG TAB PO SCH ×2 (11:16→17:04)
[2022-02-09] MEDS: Lisinopril 10 MG TAB PO SCH (11:16)
[2022-02-09] MEDS ORDERED: Potassium Chloride 20 MEQ TAB PO SCH (18:00)
[2022-02-09] MEDS ORDERED: Electrolyte Replacement Protocol FS PRN (20:00)
[2022-02-09] MEDS ORDERED: Electrolyte Replacement Protocol 1 EACH FS SCH (20:00)
[2022-02-09] MEDS: Famotidine 20 MG TAB PO SCH (20:48)
[2022-02-09] MEDS: Lisinopril 2.5 MG TAB PO SCH (20:50)
[2022-02-09] MEDS ORDERED: Lisinopril 2.5 MG TAB PO SCH (21:00)
[2022-02-10 04:44] LABS: Anion Gap 11 mmol/L (10-20); BUN (Urea Nitrogen) 23 mg/dL (8.9-20.6); Calc. Creatinine Clearance 90 mL/min (70-130); Calcium 8.9 mg/dL (7.8-10.44); Carbon Dioxide 23 mmol/L (22-29); Chloride 105 mmol/L (98-107); Glucose 91 mg/dL (70-105); Magnesium 1.9 mg/dL (1.6-2.6); Sodium 135 mmol/L (136-145)
[2022-02-10] MEDS ORDERED: Magnesium 2 GM/50 ML(in water) 2 GM in Premix Bag 1 BAG IVPB SCH (08:00)
[2022-02-10] MEDS: Aspirin Chewable 81 MG TAB PO SCH (08:26)
[2022-02-10] MEDS: Famotidine 20 MG TAB PO SCH ×2 (08:26→20:20)
[2022-02-10] MEDS: Carvedilol 3.125 MG TAB PO SCH (08:26)
[2022-02-10] MEDS: Ferrous Sulfate 325 MG TAB PO SCH (08:26)
[2022-02-10] MEDS: Lisinopril 2.5 MG TAB PO SCH ×2 (08:26→20:20)
[2022-02-10] MEDS: Carvedilol 25 MG TAB PO SCH (17:35)
[2022-02-11 04:18] LABS: #Basophils 0.1 thou/uL (0.0-0.2); #Eosinphils 0.3 thou/uL (0.0-0.7); #Lymphocytes 3.1 thou/uL (1.20-3.40); #Monocytes 0.9 thou/uL (0.11-0.59); #Neutrophils 5.2 thou/uL (1.40-6.50); %Basophils 1.1 % (0.0-1.0); %Eosinophils 2.9 % (0.0-10.0); %Monocytes 9.8 % (0.0-10.0); %Neutrophils 54.1 % (42.0-75.0); Hemoglobin 13.6 g/dL (14.0-18.0); Mean Corpuscular HGB CONC 31.6 g/dL (32.0-36.0); Mean Corpuscular Hemoglobin 24.5 pg (27.0-31.0); Mean Corpuscular Volume 77.5 fL (78.0-98.0); Mean Platelet Volume 8.5 fL (7.4-10.4); Platelet Count 348 thou/uL (130-400); Red Blood Cell (RBC) Count 5.53 mill/uL (4.70-6.10); White Blood Cell (WBC) Count 9.5 thou/uL (4.8-10.8)
[2022-02-11 04:44] LABS: Anion Gap 11 mmol/L (10-20); BUN (Urea Nitrogen) 22 mg/dL (8.9-20.6); Calc. Creatinine Clearance 6 mL/min (70-130); Carbon Dioxide 24 mmol/L (22-29); Chloride 104 mmol/L (98-107); Glucose 89 mg/dL (70-105); Magnesium 2.1 mg/dL (1.6-2.6); Potassium 4.4 mmol/L (3.5-5.1); Sodium 135 mmol/L (136-145)
[2022-02-11] MEDS: Acetaminophen 325 MG TAB PO PRN (06:38)
[2022-02-11] MEDS: Lisinopril 2.5 MG TAB PO SCH (08:05)
[2022-02-11] MEDS: Aspirin Chewable 81 MG TAB PO SCH (08:05)
[2022-02-11] MEDS: Carvedilol 25 MG TAB PO SCH ×2 (08:06→16:18)
[2022-02-11] MEDS: Famotidine 20 MG TAB PO SCH ×2 (08:06→21:03)
[2022-02-11] MEDS: Ferrous Sulfate 325 MG TAB PO SCH (08:06)
[2022-02-11] MEDS ORDERED: Communication Order-Pharmacy FS SCH (13:00)
[2022-02-11] MEDS: Lisinopril 5 MG TAB PO SCH (21:03)
[2022-02-12 04:58] LABS: Anion Gap 13 mmol/L (10-20); BUN (Urea Nitrogen) 26 mg/dL (8.9-20.6); Calc. Creatinine Clearance 90 mL/min (70-130); Calcium 9.2 mg/dL (7.8-10.44); Carbon Dioxide 21 mmol/L (22-29); Chloride 104 mmol/L (98-107); Glucose 98 mg/dL (70-105); Potassium 4.3 mmol/L (3.5-5.1); Sodium 134 mmol/L (136-145)
[2022-02-12] MEDS: Famotidine 20 MG TAB PO SCH ×2 (05:30→21:08)
[2022-02-12] MEDS: Lisinopril 5 MG TAB PO SCH (05:30)
[2022-02-12] MEDS: Carvedilol 25 MG TAB PO SCH ×2 (05:30→16:23)
[2022-02-12] MEDS: Aspirin Chewable 81 MG TAB PO SCH (05:31)
[2022-02-12] MEDS ORDERED: Sodium Chloride 0.9% 1,000 ML IV SCH (06:00)
[2022-02-12] MEDS ORDERED: Magnesium 2 GM/50 ML(in water) 2 GM in Premix Bag 1 BAG IVPB SCH (06:15)
[2022-02-12] MEDS ORDERED: Lidocaine 1% (PF) 30 ML VIAL ONE (06:27)
[2022-02-12] MEDS ORDERED: Midazolam HCl 2 mg/2 ml Vial ONE (07:12)
[2022-02-12] MEDS ORDERED: Fentanyl 100 MCG/2 ML VIAL ONE (07:12)
[2022-02-12] MEDS ORDERED: Metoprolol Tartrate 5 MG/5 ML VIAL ONE (07:19)
[2022-02-12] MEDS ORDERED: Acetaminophen/Codeine 30-300mg Tablet PO PRN (07:46)
[2022-02-12] MEDS ORDERED: Sodium Chloride 0.9% 200 ML IV PRN (07:46)
[2022-02-12] MEDS ORDERED: Nitroglycerin 0.4 MG TAB (25 Tab Bottle) SL PRN (07:46)
[2022-02-12] MEDS ORDERED: Carvedilol 25 MG TAB PO SCH ×2 (08:00→09:00)
[2022-02-12] MEDS: Ferrous Sulfate 325 MG TAB PO SCH (08:37)
[2022-02-12] MEDS: Furosemide 20 MG TAB PO SCH (09:29)
[2022-02-12] MEDS ORDERED: Iopamidol 370 76% 100 ML VIAL ONE (12:13)
[2022-02-12] MEDS ORDERED: Rosuvastatin 20 MG TAB PO SCH (21:00)
[2022-02-12] MEDS: Lisinopril 10 MG TAB PO SCH (21:08)
[2022-02-13] MEDS: Ferrous Sulfate 325 MG TAB PO SCH (08:06)
[2022-02-13] MEDS: Aspirin Chewable 81 MG TAB PO SCH (08:06)
[2022-02-13] MEDS: Lisinopril 10 MG TAB PO SCH (08:06)
[2022-02-13] MEDS: Famotidine 20 MG TAB PO SCH (08:06)
[2022-02-13] MEDS: Furosemide 20 MG TAB PO SCH (08:06)
[2022-02-13] MEDS: Carvedilol 25 MG TAB PO SCH (08:06)
[2022-02-13 09:22] LABS: Anion Gap 15 mmol/L (10-20); BUN (Urea Nitrogen) 18 mg/dL (8.9-20.6); Calc. Creatinine Clearance 91 mL/min (70-130); Calcium 9.6 mg/dL (7.8-10.44); Carbon Dioxide 20 mmol/L (22-29); Chloride 104 mmol/L (98-107); Glucose 97 mg/dL (70-105); Potassium 4.5 mmol/L (3.5-5.1); Sodium 134 mmol/L (136-145)
[2022-02-13 12:03] VITALS: BP 129/88; TEMP 97.5
== END 2022-02-13 11:55 | disposition home or self-care (01) | DRG 286 ==
LOC: ERS 04:48 → SUATTDRO 04:48 → 2NO 06:35
PROVIDERS: ADMIT Internal Medicine; ATTEND Internal Medicine
PROC: 4A023N7 Measurement of Cardiac Sampling and Pressure, Left Heart, Percutaneous Approach (ICD-10-PCS; principal; 2022-02-12)
PROC: B2151ZZ Fluoroscopy of Left Heart using Low Osmolar Contrast (ICD-10-PCS; 2022-02-12)
PROC: B2111ZZ Fluoroscopy of Multiple Coronary Arteries using Low Osmolar Contrast (ICD-10-PCS; 2022-02-12)
DX: I13.0 Hypertensive heart and chronic kidney disease with heart failure and stage 1 through stage 4 chronic kidney disease, or unspecified chronic kidney disease (principal); I50.43 Acute on chronic combined systolic (congestive) and diastolic (congestive) heart failure; I16.1 Hypertensive emergency; N17.9 Acute kidney failure, unspecified; E87.1 Hypo-osmolality and hyponatremia; Z20.822 Contact with and (suspected) exposure to COVID-19; F41.9 Anxiety disorder, unspecified; F31.9 Bipolar disorder, unspecified; F17.220 Nicotine dependence, chewing tobacco, uncomplicated; E78.5 Hyperlipidemia, unspecified; I45.81 Long QT syndrome; D63.1 Anemia in chronic kidney disease; I16.0 Hypertensive urgency; I42.9 Cardiomyopathy, unspecified; D50.9 Iron deficiency anemia, unspecified; N18.2 Chronic kidney disease, stage 2 (mild); E87.6 Hypokalemia; Z28.311 Partially vaccinated for COVID-19; Z98.52 Vasectomy status; Z79.899 Other long term (current) drug therapy
CPT/HCPCS: 36415; 71045; 76770; 80048; 80053; 80061; 80306; 81001; 82533; 82553; 82728; 82805; 83540; 83550; 83735; 83880; 84100; 84153; 84443; 84484; 85025; 93005; 93306; 93458; 94760; 96374; 96375; 97139; 99152; 99153; J1650; J1940; J2001; J2250; J3010; J3475; J7050; Q9967; U0002

== ENCOUNTER 2022-10-01 03:31 | Inpatient (IN) | payer SELFPAY ==
[2022-10-01 04:23] LABS: #Basophils 0.1 thou/uL (0.0-0.2); #Eosinphils 0.2 thou/uL (0.0-0.7); #Lymphocytes 1.6 thou/uL (1.20-3.40); #Monocytes 1.1 thou/uL (0.11-0.59); #Neutrophils 6.9 thou/uL (1.40-6.50); %Basophils 0.8 % (0.0-1.0); %Eosinophils 1.7 % (0.0-10.0); %Lymphocytes 16.6 % (21.0-51.0); %Monocytes 11.2 % (0.0-10.0); %Neutrophils 69.7 % (42.0-75.0); Hemoglobin 13.3 g/dL (14.0-18.0); Mean Corpuscular HGB CONC 33.2 g/dL (32.0-36.0); Mean Corpuscular Hemoglobin 26.5 pg (27.0-31.0); Mean Corpuscular Volume 79.9 fl (78.0-98.0); Mean Platelet Volume 8.9 fL (7.4-10.4); Platelet Count 278 10x3/uL (130-400); RBC Distribution Width 14.1 % (11.5-14.5); Red Blood Cell (RBC) Count 5.01 mill/uL (4.70-6.10); White Blood Cell (WBC) Count 9.8 10x3/uL (4.8-10.8)
[2022-10-01 04:45] LABS: ALT (SGPT) 34 U/L (8-55); AST (SGOT) 58 U/L (5-34); Albumin 3.5 g/dL (3.5-5.0); Alkaline Phosphatase 59 U/L (40-110); Anion Gap 14 mmol/L (10-20); BUN (Urea Nitrogen) 16 mg/dL (8.9-20.6); Bilirubin, Total 0.6 mg/dL (0.2-1.2); Calc. Creatinine Clearance 0 mL/min (70-130); Calcium 8.6 mg/dL (7.8-10.44); Carbon Dioxide 22 mmol/L (22-29); Chloride 102 mmol/L (98-107); Estimated GFR 74; Globulin 3.7 g/dL (2.4-3.5); Glucose 103 mg/dL (70-105); Potassium 3.2 mmol/L (3.5-5.1); Protein, Total 7.2 g/dL (6.0-8.3); Sodium 135 mmol/L (136-145)
[2022-10-01] MEDS ORDERED: Nitroglycerin 50 MG/250 ML BOT 250 ML ONE (05:03)
[2022-10-01] MEDS ORDERED: Aspirin Chewable 81 MG TAB ONE (05:03)
[2022-10-01 05:07] LABS: CKMB 21.5 ng/mL (0-6.6)
[2022-10-01] MEDS ORDERED: Acetaminophen 325 MG TAB PO PRN (05:36)
[2022-10-01] MEDS ORDERED: Calcium Carbonate 500 MG ChewTAB PO PRN (05:36)
[2022-10-01] MEDS ORDERED: Senokot S 8.6-50 MG TAB PO PRN (05:36)
[2022-10-01] MEDS ORDERED: Ondansetron ODT 4 MG TAB PO PRN (05:36)
[2022-10-01 06:42] LABS: SARS-CoV-2 NAA Rapid Test Not Detected (NotDetected)
[2022-10-01] MEDS: Furosemide 20 MG/2 ML VIAL SLOW IVP SCH ×2 (07:28→13:27)
[2022-10-01] MEDS: Aspirin Chewable 81 MG TAB PO SCH (08:08)
[2022-10-01] MEDS: Lisinopril 2.5 MG TAB PO SCH (08:08)
[2022-10-01] MEDS: Famotidine 20 MG TAB PO SCH ×2 (08:09→22:13)
[2022-10-01 08:35] LABS: Troponin I 0.073 ng/mL (< 0.028)
[2022-10-01] MEDS ORDERED: Labetalol HCl 100 MG/20 ML VIAL SLOW IVP PRN ×2 (09:34→09:41)
[2022-10-01] MEDS ORDERED: hydrALAZINE 20 MG/ML VIAL SLOW IVP PRN ×2 (09:34→09:41)
[2022-10-01 09:36] LABS: Amphetamine Detected (NotDetected); Barbiturates Screen Not Detected (NotDetected); Benzodiazepine Screen Not Detected (NotDetected); Cocaine Metabolite Screen Not Detected (NotDetected); Methadone Not Detected (NotDetected); Methamphetamine Detected (NotDetected); Opiate Screen Not Detected (NotDetected); Oxycodone Screen Not Detected (NotDetected); Phencyclidine (PCP) Not Detected (NotDetected); THC/Cannabinoid Screen Not Detected (NotDetected); Tricyclic Screen Not Detected (NotDetected)
[2022-10-01] MEDS ORDERED: Potassium Chloride 20 MEQ TAB PO SCH (09:45)
[2022-10-01 11:31] LABS: Troponin I 0.068 ng/mL (< 0.028)
[2022-10-02] MEDS: Furosemide 20 MG/2 ML VIAL SLOW IVP SCH ×2 (05:12→15:32)
[2022-10-02 05:24] LABS: Anion Gap 13 mmol/L (10-20); BUN (Urea Nitrogen) 15 mg/dL (8.9-20.6); Calc. Creatinine Clearance 0 mL/min (70-130); Calcium 8.9 mg/dL (7.8-10.44); Carbon Dioxide 24 mmol/L (22-29); Chloride 103 mmol/L (98-107); Estimated GFR 87; Glucose 83 mg/dL (70-105); Potassium 3.4 mmol/L (3.5-5.1); Sodium 137 mmol/L (136-145)
[2022-10-02] MEDS: Amlodipine 5 MG TAB PO SCH (08:52)
[2022-10-02] MEDS: Aspirin Chewable 81 MG TAB PO SCH (08:53)
[2022-10-02] MEDS: Famotidine 20 MG TAB PO SCH ×2 (08:53→21:32)
[2022-10-02] MEDS: Lisinopril 2.5 MG TAB PO SCH (08:53)
[2022-10-02] MEDS ORDERED: Ipratropium/Albuterol 3 ML NEB NEB PRN (18:20)
[2022-10-02] MEDS: Potassium Chloride 20 MEQ TAB PO SCH ×2 (21:31)
[2022-10-02] MEDS: GUAIFENESIN SF SOLN 200 MG/10 ML UDCUP PO PRN (21:32)
[2022-10-03] MEDS: Furosemide 40 MG/4 ML VIAL SLOW IVP SCH ×2 (06:10→14:28)
[2022-10-03] MEDS: GUAIFENESIN SF SOLN 200 MG/10 ML UDCUP PO PRN ×2 (06:16→20:35)
[2022-10-03] MEDS ORDERED: Lisinopril 10 MG TAB PO SCH (09:00)
[2022-10-03] MEDS: Aspirin Chewable 81 MG TAB PO SCH (09:28)
[2022-10-03] MEDS: Amlodipine 5 MG TAB PO SCH (09:28)
[2022-10-03] MEDS: Famotidine 20 MG TAB PO SCH ×2 (09:29→20:35)
[2022-10-03] MEDS ORDERED: Magnesium Sulfate 3 GM in Sodium Chloride 0.9% 100 ML IVPB SCH (13:45)
[2022-10-03] MEDS: Potassium Chloride 20 MEQ TAB PO SCH ×2 (14:27→19:05)
[2022-10-03] MEDS: hydrALAZINE 25 MG TAB PO SCH ×2 (14:27→20:35)
[2022-10-03] MEDS: Ipratropium/Albuterol 3 ML NEB NEB SCH ×2 (14:55→18:41)
[2022-10-03] MEDS: Lisinopril 10 MG TAB PO SCH (20:35)
[2022-10-04] MEDS: Ipratropium/Albuterol 3 ML NEB NEB SCH ×4 (00:12→18:43)
[2022-10-04 05:13] LABS: Anion Gap 15 mmol/L (10-20); BUN (Urea Nitrogen) 14 mg/dL (8.9-20.6); Calc. Creatinine Clearance 116 mL/min (70-130); Calcium 9.2 mg/dL (7.8-10.44); Carbon Dioxide 23 mmol/L (22-29); Chloride 100 mmol/L (98-107); Estimated GFR 79; Glucose 91 mg/dL (70-105); Magnesium 2.4 mg/dL (1.6-2.6); Potassium 4.5 mmol/L (3.5-5.1); Sodium 133 mmol/L (136-145)
[2022-10-04] MEDS: Furosemide 40 MG/4 ML VIAL SLOW IVP SCH ×2 (07:24→14:16)
[2022-10-04] MEDS: hydrALAZINE 25 MG TAB PO SCH ×3 (10:21→20:05)
[2022-10-04] MEDS: Aspirin Chewable 81 MG TAB PO SCH (10:21)
[2022-10-04] MEDS: Famotidine 20 MG TAB PO SCH ×2 (10:22→20:07)
[2022-10-04] MEDS: GUAIFENESIN SF SOLN 200 MG/10 ML UDCUP PO PRN ×2 (10:22→20:07)
[2022-10-04] MEDS: Amlodipine 5 MG TAB PO SCH (10:22)
[2022-10-04] MEDS: Lisinopril 10 MG TAB PO SCH ×2 (10:22→20:07)
[2022-10-04] MEDS ORDERED: Azithromycin 200 MG/5 ML Oral Suspension PO SCH (14:45)
[2022-10-04] MEDS ORDERED: predniSONE 20 MG TAB PO SCH (14:45)
[2022-10-05] MEDS: Ipratropium/Albuterol 3 ML NEB NEB SCH ×4 (00:11→18:09)
[2022-10-05 05:23] LABS: Anion Gap 16 mmol/L (10-20); BUN (Urea Nitrogen) 22 mg/dL (8.9-20.6); Calc. Creatinine Clearance 101 mL/min (70-130); Calcium 9.4 mg/dL (7.8-10.44); Carbon Dioxide 22 mmol/L (22-29); Chloride 101 mmol/L (98-107); Estimated GFR 69; Glucose 110 mg/dL (70-105); Potassium 4.6 mmol/L (3.5-5.1); Sodium 134 mmol/L (136-145)
[2022-10-05] MEDS ORDERED: Azithromycin 200 MG/5 ML Oral Suspension PO SCH (09:00)
[2022-10-05] MEDS: Aspirin Chewable 81 MG TAB PO SCH (09:32)
[2022-10-05] MEDS: Amlodipine 5 MG TAB PO SCH (09:32)
[2022-10-05] MEDS: Famotidine 20 MG TAB PO SCH (09:33)
[2022-10-05] MEDS: Furosemide 40 MG TAB PO SCH ×2 (09:34→13:56)
[2022-10-05] MEDS: Lisinopril 10 MG TAB PO SCH (09:34)
[2022-10-05] MEDS: hydrALAZINE 25 MG TAB PO SCH ×2 (09:35→14:00)
[2022-10-05] MEDS: GUAIFENESIN SF SOLN 200 MG/10 ML UDCUP PO PRN ×2 (09:36→13:56)
[2022-10-05] MEDS ORDERED: Azithromycin 250 MG TAB PO SCH (10:15)
[2022-10-05 19:28] VITALS: BP 136/86; TEMP 98.1
[2022-10-06] MEDS ORDERED: Azithromycin 250 MG TAB PO SCH (09:00)
== END 2022-10-05 19:15 | disposition home or self-care (01) | DRG 280 ==
LOC: ERS 03:31 → CCU 05:23 → 2NO 21:28
PROVIDERS: ADMIT Internal Medicine; ATTEND Internal Medicine
DX: I13.0 Hypertensive heart and chronic kidney disease with heart failure and stage 1 through stage 4 chronic kidney disease, or unspecified chronic kidney disease (principal); I50.23 Acute on chronic systolic (congestive) heart failure; I21.A1 Myocardial infarction type 2; T43.621A Poisoning by amphetamines, accidental (unintentional), initial encounter; Z20.822 Contact with and (suspected) exposure to COVID-19; E87.1 Hypo-osmolality and hyponatremia; N17.9 Acute kidney failure, unspecified; I16.1 Hypertensive emergency; I42.0 Dilated cardiomyopathy; F15.10 Other stimulant abuse, uncomplicated; J20.9 Acute bronchitis, unspecified; E78.5 Hyperlipidemia, unspecified; N18.9 Chronic kidney disease, unspecified; R77.8 Other specified abnormalities of plasma proteins; E87.6 Hypokalemia; D63.1 Anemia in chronic kidney disease; I08.1 Rheumatic disorders of both mitral and tricuspid valves; Z71.51 Drug abuse counseling and surveillance of drug abuser; Z79.82 Long term (current) use of aspirin; Z79.899 Other long term (current) drug therapy; Z98.52 Vasectomy status; Z82.49 Family history of ischemic heart disease and other diseases of the circulatory system; Z91.199 Patient's noncompliance with other medical treatment and regimen due to unspecified reason
CPT/HCPCS: 36415; 71045; 80048; 80053; 80306; 82553; 83605; 83735; 83880; 84484; 85025; 87040; 93005; 93306; 93798; 94640; 96365; 96366; J1650; J1940; J3475; J3490; J7512; J7620; U0002